=== PATIENT | male | born 1985 | race Caucasian/White ===

== ENCOUNTER 2019-05-10 09:33 | Inpatient (IN) | payer SELFPAY ==
[~2019-05-10] VITALS: Ht 165.1 cm; Wt 59.7 kg
[2019-05-10 11:02] LABS: BASOPHILS ABSOLUTE AUTO 0.03 K/mm3 (0.00-0.23); BASOPHILS PERCENT AUTO 0 % (0-2); EOSINOPHILS ABSOLUTE AUTO 0.02 K/mm3 (0.00-0.68); EOSINOPHILS PERCENT AUTO 0 % (0-6); Hematocrit 41.4 % (37.0-53.0); Hemoglobin 14.4 g/dL (13.5-17.5); IMMATURE GRAN ABSOLUTE AUTO 0.01 K/mm3 (0.00-0.10); IMMATURE GRAN PERCENT AUTO 0 % (0-1); LYMPHOCYTES ABSOLUTE AUTO 1.37 K/mm3 (0.84-5.20); LYMPHOCYTES PERCENT AUTO 19 % (21-46); MONOCYTES ABSOLUTE AUTO 0.38 K/mm3 (0.16-1.47); MONOCYTES PERCENT AUTO 5 % (4-13); Mean Corpuscular HGB 31.1 pg (26.0-34.0); Mean Corpuscular HGB Conc 34.8 g/dL (31.5-36.5); Mean Corpuscular Volume 89 fL (80-100); Mean Platelet Volume 11.8 fL (9.1-12.4); NEUTROPHILS ABSOLUTE AUTO 5.28 K/mm3 (1.96-9.15); NEUTROPHILS PERCENT AUTO 75 % (41-73); Platelet Count 211 K/mm3 (150-400); RDW Coefficient Variation 11.8 % (11.7-14.2); RDW Standard Deviation 38.5 fL (35.1-46.3); Red Blood Cell Count 4.63 M/mm3 (4.30-5.90); White Blood Cell Count 7.09 K/mm3 (4.00-11.30)
[2019-05-10 11:25] LABS: Alanine Aminotransfer (ALT/SGP 19 U/L (12-78); Albumin, Blood 4.3 g/dL (3.4-5.0); Albumin/Globulin Ratio 1.2 (0.8-1.8); Alk Phos 83 U/L (50-136); Anion Gap 9 mmol/L (6-16); Aspartate Aminotrans (AST/SGOT 17 U/L (12-37); Bilirubin, Total 0.9 mg/dL (0.1-1.0); Blood Urea Nitrogen 12 mg/dL (8-24); Bun/Creatinine Ratio 14.5 (12.0-20.0); CO2, Blood 25 mmol/L (21-32); Calcium, Blood 9.3 mg/dL (8.5-10.1); Chloride, Blood 109 mmol/L (98-108); Creatinine, Blood 0.83 mg/dL (0.60-1.20); Ethanol (Alcohol), Blood, Med <3 mg/dL; Globulin, Blood 3.5 g/dL (2.2-4.0); Glomerular Filtration Rate >60 (60-); Glucose, Blood 104 mg/dL (70-99); Potassium, Blood 3.4 mmol/L (3.5-5.5); Salicylate 2.6 mg/dL (2.8-20.0); Sodium, Blood 143 mmol/L (136-145); Total Protein, Blood 7.8 g/dL (6.4-8.2)
[2019-05-10 11:29] LABS: Thyroid Stimulating Hormone 0.485 uIU/mL (0.360-4.800)
[2019-05-10 11:30] LABS: Acetaminophen, Random <2.0 ug/mL (10.0-30.0)
[2019-05-10 12:49] LABS: Source, Urine Clean Catch
[2019-05-10 12:53] LABS: Bilirubin, Urine Neg (Neg); Blood, Urine Neg (Neg); Glucose Qualitative, Urine Neg (Neg); Ketones, Urine 3+ (Neg); Leukocyte Esterase, Urine Neg (Neg); Nitrite, Urine Neg (Neg); Protein, Urine 2+ (Neg); Specific Gravity, Urine 1.025 (1.003-1.022); Urobilinogen, Urine 2+ (Normal)
[2019-05-10 13:02] LABS: Appearance, Urine Clear (Clear); Color, Urine Yellow (P-Yellow)
[2019-05-10 13:03] LABS: Bacteria Mod /hpf; Mucus Mod (0-Heavy); Red Blood Cells, Urine Not Seen /hpf (0-2); Squamous Epithelial Cells Rare /hpf (Few)
[2019-05-10 13:04] LABS: Hyaline Casts 0-2 /lpf (0-2)
[2019-05-10 13:05] LABS: U Amphetamine Screen DETECTED; U Barbituate Screen Not Detected; U Benzodiazapine Screen Not Detected; U Buprenorphine Screen Not Detected; U Cannabinoids Screen DETECTED; U Cocaine Screen Not Detected; U Methadone Screen Not Detected; U Methamphetamine Screen Not Detected; U Opiates Screen Not Detected; U Oxycodone Screen Not Detected; U Phencyclidine Screen Not Detected; U Propoxyphene Screen Not Detected
--- NOTE | 2019-05-10 15:38 | NUR ---
PATIENT ADMITTED TO ICU 4 AFTER REPORT FROM ADARSH CARDONA. IN 4 POINT LOCKED RESTRAINTS. SECURITY AND TITLE INSURANCE EXAMINER ASSISTED WITH TRANSFER. MAKING NOISES, BUT UNINTELLIGIBLE. THRASHES AGAINST RESTRAINTS.
[2019-05-10 16:40] LABS: Base Excess Venous -0.1 mmol/L; Bicarbonate Venous 24.7 mmol/L (24.0-30.0); PCO2 Venous 34.9 mmHg (38-42); PO2 Venous 80.9 mmHg (38-42); pH Blood Venous 7.44 (7.34-7.37)
--- NOTE | 2019-05-10 17:37 | NUR ---
NOTIFIED DR. BUSTOS OF [facility] RESULTS. ORDERS RECEIVED AND IMPLEMENTED. SHE IS ENROUTE
--- NOTE | 2019-05-10 19:04 | NUR ---
PRECEDEX GTT AT 0.9 MCG/KG/HR. 2ND NS BOLUS RUNNING. PATIENT CONTINUES TO THRASH AGAINST 4 PT RESTRAINTS. REPORT TO ADARSH AG
--- NOTE | 2019-05-10 20:54 | NUR ---
[place] of Care: Care assumed at 1900hr. Patient sleeping/calm at times, but mostly restless and thrashing in bed. Responds to noxious stimuli, but unable to communicate with staff. Only mumbles incoherent words. Precedex gtt at 0.9 mcg/kg/min at shift change. Started Versed gtt at 2mg/hr shortly after shift change per Dr. Schafer instructions, and have since titrated precedex gtt off as heart rate had decreased to the high 40's. Plan to keep precedex off and titrated Versed gtt as indicated. HR has increased to 60's, and all other VSS. Bilateral peripheral IV's patent and intact. Saba cath patent and intact, draining dark yellow urine. Will continue to monitor for pain, safety, comfort.
[2019-05-10 21:31] LABS: Creatine Kinase MB 28.6 ng/mL (0.0-3.6); Creatine Kinase MB Index 0.7 (0.0-4.0)
[2019-05-11 04:08] LABS: Base Excess Venous -3.5 mmol/L; Bicarbonate Venous 20.8 mmol/L (24.0-30.0); PCO2 Venous 44.1 mmHg (38-42); PO2 Venous 38.8 mmHg (38-42); pH Blood Venous 7.32 (7.34-7.37)
[2019-05-11 04:13] LABS: BASOPHILS ABSOLUTE AUTO 0.02 K/mm3 (0.00-0.23); BASOPHILS PERCENT AUTO 0 % (0-2); EOSINOPHILS ABSOLUTE AUTO 0.02 K/mm3 (0.00-0.68); EOSINOPHILS PERCENT AUTO 0 % (0-6); Hematocrit 41.7 % (37.0-53.0); IMMATURE GRAN ABSOLUTE AUTO 0.03 K/mm3 (0.00-0.10); IMMATURE GRAN PERCENT AUTO 0 % (0-1); LYMPHOCYTES ABSOLUTE AUTO 1.62 K/mm3 (0.84-5.20); LYMPHOCYTES PERCENT AUTO 15 % (21-46); MONOCYTES ABSOLUTE AUTO 0.81 K/mm3 (0.16-1.47); MONOCYTES PERCENT AUTO 8 % (4-13); Mean Corpuscular HGB 30.8 pg (26.0-34.0); Mean Corpuscular HGB Conc 33.6 g/dL (31.5-36.5); Mean Corpuscular Volume 92 fL (80-100); Mean Platelet Volume 12.2 fL (9.1-12.4); NEUTROPHILS ABSOLUTE AUTO 8.08 K/mm3 (1.96-9.15); NEUTROPHILS PERCENT AUTO 76 % (41-73); Platelet Count 177 K/mm3 (150-400); RDW Coefficient Variation 11.9 % (11.7-14.2); Red Blood Cell Count 4.54 M/mm3 (4.30-5.90); White Blood Cell Count 10.58 K/mm3 (4.00-11.30)
[2019-05-11 04:33] LABS: Alanine Aminotransfer (ALT/SGP 46 U/L (12-78); Albumin, Blood 3.8 g/dL (3.4-5.0); Albumin/Globulin Ratio 1.2 (0.8-1.8); Alk Phos 83 U/L (50-136); Anion Gap 6 mmol/L (6-16); Aspartate Aminotrans (AST/SGOT 122 U/L (12-37); Bilirubin, Total 1.3 mg/dL (0.1-1.0); Blood Urea Nitrogen 9 mg/dL (8-24); Bun/Creatinine Ratio 14.3 (12.0-20.0); CO2, Blood 24 mmol/L (21-32); Calcium, Blood 8.2 mg/dL (8.5-10.1); Chloride, Blood 112 mmol/L (98-108); Creatinine, Blood 0.63 mg/dL (0.60-1.20); Globulin, Blood 3.1 g/dL (2.2-4.0); Glomerular Filtration Rate >60 (60-); Glucose, Blood 83 mg/dL (70-99); Magnesium, Blood 2.1 mg/dL (1.6-2.4); Phosphorus, Blood 2.3 mg/dL (2.5-4.9); Potassium, Blood 3.6 mmol/L (3.5-5.5); Sodium, Blood 142 mmol/L (136-145); Total Protein, Blood 6.9 g/dL (6.4-8.2)
--- NOTE | 2019-05-11 06:09 | NUR ---
Shift Summary: Patient became slightly more alert/oriented throughout shift. Now able to rouse and talk to staff, but only able to state his name/. Remains confused to place, time, event, and stated at time that he was hearing voices. Also continues to mumble incoherently, and be restless/thrashing in bed when awake. Versed gtt increased to 8mg/hr at approx 2300hr and remained at this dose for remainder of shift. Tuff-cuff restraints x3 extremities removed and bilateral soft wrist restraints applied, effective to keep patient safe. Patient vomited x3 this shift, moderate amount of green bile. After 2nd emesis, this nurse and charge accounts audit clerk Sarah attempted to place NG tube. 1st attempt to place NG unsuccessful as tube curled in patients mouth. 2nd attempt to place NG tube may have passed into patient's airway as he began continually coughing, NG tube insertion then abandoned. Patient left supine with HOB elevated above 45 degrees. Patient able to cough/gag and appears to be protecting airway without difficulty. Saba cath remains patent and intact, drain dark ema urine, output increased this shift to 925ml. Patient now sleeping, appears calm and comfortable. Will continue to monitor until report to day shift RN.
--- NOTE | 2019-05-11 07:26 | NUR ---
ASSUMED CARE REPORT FROM ADARSH AG. EKG DONE. SINUS KAYDEN ARRHYTHMIA WITH PROLONGED QTc. VERSED GTT TITRATED FROM 8 MG/HR TO 2 MG/HR. TEMP 96.6 MORE WARM BLANKETS PROVIDED. PATIENT ASKED FOR FRUIT SNACKS WHILE DOING EKG, C/O BEING COLD, SAID HE LIVED IN [place], [place]. REMEMBERS RIDING BUS TO [place]
--- NOTE | 2019-05-11 09:19 | NUR ---
MD VISIT DR. PEREZ IN. CONFERRED WITH DR. BUSTOS. NO NEW ORDERS
--- NOTE | 2019-05-11 09:27 | NUR ---
MD VISIT DR. BUSTOS IN.
--- NOTE | 2019-05-11 09:32 | NUR ---
VERSED TITRATED TO 1 MG/HR
--- NOTE | 2019-05-11 10:10 | NUR ---
VERSED OFF. PHOS REPLACEMENT.
--- NOTE | 2019-05-11 10:17 | NUR ---
VERSED GTT OFF. UNSPIKED BAG OF VERSED RETURNED TO PHARMACY WINDOW.
--- NOTE | 2019-05-11 12:08 | NUR ---
PATIENT USED HIS CALL LIGHT AND SAID HE JUST WOKE UP AND WANTED INFORMATION ABOUT WHY HE WAS HERE. ASKED FOR HIS BELONGINGS AND IF HE HAD A CATHETER. BELONGINGS GIVEN AND TOLD HE WOULD HAVE HIS CATHETER UNTIL AFTER 4 PM. NOTIFIED BROTHER THAT HE WAS AWAKE.
--- NOTE | 2019-05-11 12:21 | NUR ---
PT C/O JOHNSON AND SORE STOMACH
--- NOTE | 2019-05-11 13:20 | NUR ---
ISTRATE IN TO TALK TO PATIENT NOW THAT HE IS AWAKE. PATIENT ASKING ABOUT A MIR BOX HE HAD. HIS BROTHER SAID THE MIR BOX HAD DRUGS IN IT AND HE FLUSHED THEM DOWN THE TOILET. PATIENT C/O OF BEING HANDLED ROUGHLY "BY THAT MAN" SECURITY WILL STOP BY LATER TO DISCUSS IT WITH THE PATIENT.
--- NOTE | 2019-05-11 13:46 | NUR ---
SECURITY IN TO SEE PATIENT
--- NOTE | 2019-05-11 13:59 | NUR ---
PATIENT ASKED SECURITY FOR PERCOCET
--- NOTE | 2019-05-11 16:18 | NUR ---
PATIENT SLEEPING. VERSED GTT AND PRECEDEX OFF. AWAITING 1600 LAB DRAW AND RESULTS TO LISA HOWELL. NO ATIVAN NEEDED.
--- NOTE | 2019-05-11 16:56 | NUR ---
PATIENT FEELS COLD. HUDDLED IN BLANKETS WITH HEAT UP. TEMP ELEVATED D/T BEING UNDER BLANKETS. LAB TECHS STILL ATTEMPTING DRAW (VEINS HAVE SCAR TISSUE FROM IV DRUG ABUSE)
[2019-05-11 17:06] LABS: Base Excess Venous -1.4 mmol/L; Bicarbonate Venous 24.5 mmol/L (24.0-30.0); PCO2 Venous 26.6 mmHg (38-42); PO2 Venous 182 mmHg (38-42); pH Blood Venous 7.52 (7.34-7.37)
--- NOTE | 2019-05-11 18:36 | NUR ---
LAB RESULTS CALLED TO DR. BUSTOS. ORDERS RECEIVED AND IMPLEMENTED
--- NOTE | 2019-05-11 19:08 | NUR ---
[place] of Care: Patient sleeping, roused via loud verbal stimuli and drowsy when awake. Oriented x4, VSS, O2-98% on RA, denies dyspnea or SOB. C/o nausea, x1 prn IV Zofran given at this time. Patient also C/o general body ache, back pain. Plan to given prn tylenol, but waiting for effects of Zofran and to see if patient can tolerate PO fluids. Patient sleeping, appears calm and comfortable when not roused by staff. Love cath patent and intact, draining clear yellow urine. Plan to D/C love cath early this shift, per orders from Dr. Schafer. Peripheral IV x1 to rt forearm patent and intact, infusing NS at 100ml/hr without difficulty. Will continue to monitor for pain, safety, comfort.
[2019-05-12 03:46] LABS: Base Excess Venous -0.6 mmol/L; Bicarbonate Venous 24.6 mmol/L (24.0-30.0); PO2 Venous 92.4 mmHg (38-42); pH Blood Venous 7.48 (7.34-7.37)
[2019-05-12 03:53] LABS: BASOPHILS ABSOLUTE AUTO 0.03 K/mm3 (0.00-0.23); BASOPHILS PERCENT AUTO 0 % (0-2); EOSINOPHILS ABSOLUTE AUTO 0.01 K/mm3 (0.00-0.68); EOSINOPHILS PERCENT AUTO 0 % (0-6); Hematocrit 39.3 % (37.0-53.0); Hemoglobin 13.7 g/dL (13.5-17.5); IMMATURE GRAN ABSOLUTE AUTO 0.02 K/mm3 (0.00-0.10); IMMATURE GRAN PERCENT AUTO 0 % (0-1); LYMPHOCYTES PERCENT AUTO 18 % (21-46); MONOCYTES ABSOLUTE AUTO 0.63 K/mm3 (0.16-1.47); MONOCYTES PERCENT AUTO 6 % (4-13); Mean Corpuscular HGB 30.2 pg (26.0-34.0); Mean Corpuscular HGB Conc 34.9 g/dL (31.5-36.5); NEUTROPHILS ABSOLUTE AUTO 7.79 K/mm3 (1.96-9.15); NEUTROPHILS PERCENT AUTO 75 % (41-73); Platelet Count 214 K/mm3 (150-400); RDW Coefficient Variation 11.9 % (11.7-14.2); RDW Standard Deviation 37.6 fL (35.1-46.3); Red Blood Cell Count 4.53 M/mm3 (4.30-5.90); White Blood Cell Count 10.38 K/mm3 (4.00-11.30)
[2019-05-12 03:54] LABS: Mean Corpuscular Volume 87 fL (80-100)
[2019-05-12 04:12] LABS: Alanine Aminotransfer (ALT/SGP 42 U/L (12-78); Albumin, Blood 3.6 g/dL (3.4-5.0); Albumin/Globulin Ratio 1.1 (0.8-1.8); Alk Phos 77 U/L (50-136); Anion Gap 7 mmol/L (6-16); Aspartate Aminotrans (AST/SGOT 76 U/L (12-37); Bilirubin, Total 0.8 mg/dL (0.1-1.0); Blood Urea Nitrogen 4 mg/dL (8-24); Bun/Creatinine Ratio 5.9 (12.0-20.0); CO2, Blood 26 mmol/L (21-32); Calcium, Blood 8.8 mg/dL (8.5-10.1); Chloride, Blood 108 mmol/L (98-108); Creatinine, Blood 0.68 mg/dL (0.60-1.20); Globulin, Blood 3.4 g/dL (2.2-4.0); Glomerular Filtration Rate >60 (60-); Glucose, Blood 109 mg/dL (70-99); Potassium, Blood 2.9 mmol/L (3.5-5.5); Sodium, Blood 141 mmol/L (136-145)
--- NOTE | 2019-05-12 06:13 | NUR ---
Shift Summary: Patient slept well throughout shift. Remains calm/cooperative with staff when awake. X1 prn Ativan given per c/o anxiety/restlessness with good effect noted. X1 prn Tylenol given per c/o back pain with good effect noted. Remains oriented to self, place, event, VSS. Peripheral IV x1 to rt forearm patent and intact. Morning labs showed potassium-2.9. This nurse wrote for 60 meq IV KCl per electrolyte replacement protocol. Sleeping at this time, makes needs known. Will continue to monitor until report to day shift RN.
--- NOTE | 2019-05-12 07:20 | NUR ---
ASSUMED CARE OF PATIENT; SEE ASSESSMENT CHARTING FOR DETAILS. PATIENT WOKEN FROM SLEEP BY RN; ORIENTED AND COOPERATIVE; SPEECH SLOW TO RESPOND, AT TIMES. BIOX. MAINTAINING MID TO HIGH 90'S ON ROOM AIR. MONITOR REMAINS SINUS KAYDEN TO NSR (SINUS ARRYTHMIA). K+ RIDER INFUSING ALONG WITH NS AT 100ML/HR. REMAINS ON RESTRAINTS AND OFF SEDATION.
[2019-05-12 11:18] LABS: Anion Gap 4 mmol/L (6-16); Blood Urea Nitrogen 5 mg/dL (8-24); Bun/Creatinine Ratio 7.7 (12.0-20.0); CO2, Blood 27 mmol/L (21-32); Calcium, Blood 8.7 mg/dL (8.5-10.1); Chloride, Blood 109 mmol/L (98-108); Creatinine, Blood 0.65 mg/dL (0.60-1.20); Glomerular Filtration Rate >60 (60-); Glucose, Blood 190 mg/dL (70-99); Potassium, Blood 3.2 mmol/L (3.5-5.5); Sodium, Blood 140 mmol/L (136-145)
--- NOTE | 2019-05-12 12:00 | NUR ---
TELEPSYCH CONFERENCE STARTED; PATIENT SPOKE WITH DR. BOLANOS; RECOMMENDATIONS FROM PSYCHIATRY TO HOSPITALIST (DR. PEREZ); WANTS PATIENT IN A DRUG REHAB FACILITY.
--- NOTE | 2019-05-12 12:59 | NUR ---
T/C TO DR. PEREZ TO SEE IF PATIENT CAN CHANGE TO MEDICAL FLOOR STATUS; OKAY GIVEN. GREY GOODS EXAMINER WILL BE HERE TOMORROW TO WORK ON INPATIENT DRUG REHAB. PLACEMENT. PATIENT SLEEPING; C/O CHRONIC BACK PAIN, 06/01,; MEDICATED WITH PO PAIN MED.
--- NOTE | 2019-05-12 15:15 | NUR ---
REPORT TO RAFAEL PANIAGUA RN; PATIENT TO TRANSFER TO [facility] FLOOR, ROOM 331.
--- NOTE | 2019-05-12 15:20 | NUR ---
TO MEDICAL FLOOR, ROOM 331; AMBULATED. ESCORTED BY KARLEE SANTIAGO RN. BELONGINGS WITH PATIENT WELL CHART.
--- NOTE | 2019-05-12 16:18 | NUR ---
ICU TRANSFER TO RM 331. PT IS A/O X4, PSYCHOSIS SEEMS RELIEVED @ THIS TIME. HIS RECALL OF EVENTS LEADING TO ADMISSION SOMEWHAT DISTORTED HOWEVER. HE STATE HE LOST HIS PRESCRIPTION EYEGLASSES, NURS SUPRVR STATE HE DID NOT HAVE THEM ON ADMISSION TO HOSP, PT INFORMED. ORIENTED TO ROOM & CALL SYSTEM. VSS,
[2019-05-12] MEDS ORDERED: CLON1 PO (17:38)
[2019-05-12] MEDS ORDERED: Percocet 10-321 EACH PO (17:39)
[2019-05-13 04:45] LABS: BASOPHILS ABSOLUTE AUTO 0.05 K/mm3 (0.00-0.23); BASOPHILS PERCENT AUTO 1 % (0-2); EOSINOPHILS ABSOLUTE AUTO 0.05 K/mm3 (0.00-0.68); EOSINOPHILS PERCENT AUTO 1 % (0-6); Hemoglobin 14.2 g/dL (13.5-17.5); IMMATURE GRAN ABSOLUTE AUTO 0.01 K/mm3 (0.00-0.10); IMMATURE GRAN PERCENT AUTO 0 % (0-1); LYMPHOCYTES ABSOLUTE AUTO 2.97 K/mm3 (0.84-5.20); LYMPHOCYTES PERCENT AUTO 39 % (21-46); MONOCYTES ABSOLUTE AUTO 0.61 K/mm3 (0.16-1.47); MONOCYTES PERCENT AUTO 8 % (4-13); Mean Corpuscular HGB Conc 33.8 g/dL (31.5-36.5); Mean Corpuscular Volume 89 fL (80-100); Mean Platelet Volume 12.3 fL (9.1-12.4); NEUTROPHILS ABSOLUTE AUTO 3.94 K/mm3 (1.96-9.15); NEUTROPHILS PERCENT AUTO 52 % (41-73); Platelet Count 210 K/mm3 (150-400); RDW Coefficient Variation 11.9 % (11.7-14.2); RDW Standard Deviation 38.2 fL (35.1-46.3); Red Blood Cell Count 4.73 M/mm3 (4.30-5.90); White Blood Cell Count 7.63 K/mm3 (4.00-11.30)
[2019-05-13 05:07] LABS: Alanine Aminotransfer (ALT/SGP 39 U/L (12-78); Albumin, Blood 3.5 g/dL (3.4-5.0); Alk Phos 76 U/L (50-136); Anion Gap 9 mmol/L (6-16); Aspartate Aminotrans (AST/SGOT 39 U/L (12-37); Bilirubin, Total 0.4 mg/dL (0.1-1.0); Blood Urea Nitrogen 5 mg/dL (8-24); Bun/Creatinine Ratio 7.1 (12.0-20.0); CO2, Blood 24 mmol/L (21-32); CPK Creatine Kinase 912 U/L (39-308); Calcium, Blood 8.7 mg/dL (8.5-10.1); Chloride, Blood 108 mmol/L (98-108); Creatinine, Blood 0.71 mg/dL (0.60-1.20); Globulin, Blood 3.4 g/dL (2.2-4.0); Glomerular Filtration Rate >60 (60-); Glucose, Blood 122 mg/dL (70-99); Sodium, Blood 141 mmol/L (136-145); Total Protein, Blood 6.9 g/dL (6.4-8.2)
--- NOTE | 2019-05-13 05:24 | NUR ---
Rn summary: Patient has rested most of shift. He did received Oxy 10mg at beginning of shift. Pt slept until vital signs at 0500. Pt requesting ativan for anxiety, also given zofran for nausia. Pt is very diaphoretic, linen changed. Pt states he doesnt feel well. 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 Pt states he wants to get clean. Wants to know the best way to do that. Call light in reach. Will continue to monitor and assist as needed.
[2019-05-13] MEDS ORDERED: NICO21TP TOP (13:33)
[2019-05-13] MEDS ORDERED: ONDA4ODT MM (13:34)
[2019-05-13] MEDS ORDERED: K-TAB ER20 MEQ PO (13:35)
[2019-05-13] MEDS ORDERED: ACET325 PO (13:35)
--- NOTE | 2019-05-13 15:05 | NUR ---
DISCHARGE DISCHARGE INSTRUCTIONS, FOLLOW UP APPOINTMENTS AND MEDICATION LIST REVIEWED WITH PT AND HIS BROTHER. QUESTIONS/CONCERNS ANSWERED. BOTH VERBALLY INDICATED UNDERSTANDING OF ALL INSTRUCTIONS RECEIVED. PT VERBALLY INDICATED THAT HE WAS GOING TO ADAPT THIS AFTERNOON AND BOTH HE AND HIS BROTHER WERE PLANNING ON SIGNING UP WITH [facility]. DELLA [employer]YTE MANAGER INVENTORY PROVIDED INFORMATION ON [facility] AND [facility] TO PT. PT ESCORTED OUT
--- NOTE | 2019-05-13 15:32 | NUR ---
PT DISCHARGE INSTRUCTIONS FOUND LEFT BEHIND IN PT ROOM
== END 2019-05-13 14:53 | disposition home or self-care (01) | DRG 896 ==
LOC: ER 09:33 → ICUE 09:34 → EOR 09:34 → ER 09:34 → EOR 09:34 → ICUW 13:51 → ICUE 13:51 → MEDS 13:51 → ICUE 13:51 → MEDS 15:10 → ICUE 15:15 → EOR 15:15 → ICUE 15:15 → MEDS 05-12 16:00
PROVIDERS: Internal Medicine; Internal Medicine Pulmonary Disease; ADMIT Family Medicine
DX: F19.21 Other psychoactive substance dependence, in remission (principal); G92 Toxic encephalopathy; M62.82 Rhabdomyolysis; I10 Essential (primary) hypertension; E87.6 Hypokalemia; F29 Unspecified psychosis not due to a substance or known physiological condition; E86.0 Dehydration; F12.929 Cannabis use, unspecified with intoxication, unspecified; Z78.1 Physical restraint status
CPT/HCPCS: 36415; 51702; 71045; 80048; 80053; 81001; 82550; 82553; 82803; 83735; 84100; 84443; 85025; 87086; 93005; 93010; 96372; 99285-25; A9270; G0480; J1200; J1630; J1650; J2060; J2250; J2405; J3480; J7030; J7060; Q3014